=== PATIENT | male | born 1990 | race African-American/Black ===

== ENCOUNTER 2020-08-13 07:50 | Outpatient (CLI) | payer OTHER, SELFPAY ==
--- NOTE | 2020-08-13 13:05 | WPDPFTINT ---
PFT Procedure Performed PFT Procedure Performed Spirometry with Pre/Post Bronchodilator Plethysmography (Lung Vol) Diffusing Cap (DLCO) Flow Vol Loop PFT Interpretation This is a pulmonary function test with pre and post-bronchodilator spirometry, plethysmography and diffusing capacity. The test was performed and results interpreted in accordance with the 2019 and 2005 ATS/ERS Task Force guidelines respectively using the Global Lung Function Initiative-2012 reference equations. Patient demonstrated good effort and cooperation. Reproducibility criteria were met. The quality of the pre bronchodilator spirometry maneuver was Grade A and post bronchodilator spirometry maneuver was Grade A. Findings: Spirometry:The contour the inspiratory and expiratory flow tracing are normal. The pre bronchodilator FVC is 4.57 L, 93% predicted. The pre bronchodilator FEV1 is 3.53 L, 86% predicted. The FEV1: FVC ratio is 77%. The post bronchodilator FVC is 4.67 L, representing a 2% increase. The post bronchodilator FEV1 is 3.88 L, representing a 10% increase. Plethysmography: The total lung capacity is 5.83 L, 91% predicted. The functional residual capacity is 2.42 L, 72% predicted. The residual volume is 1.23 L, 76% predicted. Diffusing capacity: The absolute diffusion capacity is 33.3, 92% predicted. The diffusing capacity corrected for alveolar volume is 5.95, 118% predicted. Impression: The spirometry is normal without evidence of an obstructive abnormality. There is no significant improvement after inhaling a single dose of albuterol. The lung volumes are normal. The diffusing capacity is normal. There are no prior studies for comparison
== END 2020-08-13 07:51 | disposition home or self-care (01) ==
LOC: ANHPFT 07:52
PROVIDERS: PCP Nurse Practitioner Family; Visit Provider Allergy & Immunology
DX: J45.20 Mild intermittent asthma, uncomplicated (principal)
CPT/HCPCS: 94060; 94726; 94729

== ENCOUNTER 2022-01-26 11:40 | Outpatient (CLI) | payer OTHER, SELFPAY ==
--- NOTE | ~2022-01-26 | MR_ITS ---
EXAMINATION: MR shoulder LT w con DATE: 01/26/2022 13:19 INDICATION: Back left shoulder pain TECHNIQUE: Magnetic resonance imaging (MRI) of the left shoulder was performed following intra-artic ular gadolinium contrast injection and without intravenous contrast. Details of the glenohumeral join t injection have been dictated separately. Sequences included axial T2-weighted FS FSE, axial T1-santa ghted FS FSE, coronal oblique T1-weighted FS FSE, coronal oblique T2-weighted FSE, sagittal T2-weight ed FS FSE, sagittal T1-weighted FSE, and ABER (abduction external rotation) T1-weighted FS FSE. COMPARISON: None. FINDINGS: Coracoacromial arch: The acromion undersurface is curved in morphology (type II). The coracoacromial ligament is normal. A cromioclavicular joint is normal. Rotator cuff: Mild supraspinatus and infraspinatus tendinopathy. Tiny articular sided tear/perforation with minimal intrasubstance transition of contrast on the otherwise intact appearing tendon fibers near the footp late of the conjoined portion of the tendons but without a discrete measurable tear defect. The subsc apularis and teres minor tendons are normal. Normal rotator cuff muscle bulk and signal. Biceps tendon, glenoid labrum and glenohumeral cartilage: Extensive labral tear beginning anteriorly at the 12:30 position of the superior glenoid labrum and e xtending posteriorly and inferiorly to the 6:00 position. Multiple small associated para labral cysts at the peripheral remnant glenoid from the 11:00 position to the 9:00 position. There is a small sha llow partial thickness cleft at the chondral labral junction at the 3:00-4:00 position of the anterio r labrum. Nonuniform partial-thickness cartilage loss with posterior inferior predominant. This likel y approaches full-thickness near the 8:00 position where there is underlying cortical irregularity an d mild subarticular cystlike changes. Cartilage at the humeral head appears relatively preserved Bones and other: Bone alignment is normal. No fracture or pathologic marrow replacing process. Tiny fluid collection i n the subdeltoid bursa overlying the anterior inferior greater tuberosity which could represent minim al bursitis. IMPRESSION: 1. Mild glenohumeral osteoarthritis with small region of high-grade chondromalacia along the posterio r inferior glenoid. 2. Extensive labral tear involving the posterior half of the glenoid labrum with with several small p osterior to posterior superior paralabral cysts. Separate small shallow tear at the chondro labral ju nction at the anterior glenoid. 3. Mild supraspinatus and infraspinatus tendinopathy with tiny articular sided perforation at the dis tao conjoined portion of the tendon resulting in minimal intrasubstance contrast imbibition region of doubtful functional significance with no measurable tear defect. Reviewed, dictated and finalized at location A. IMPRESSION: 1. Mild glenohumeral osteoarthritis with small region of high-grade chondromala umm along the posterior inferior glenoid. 2. Extensive labral tear involving the posterior half of the glenoid labrum wit h with several small posterior to posterior superior paralabral cysts. Separate small shallow tear at the chondro labral junction at the anterior glenoid. 3. Mild supraspinatus and infraspinatus tendinopathy with tiny articular sided perforation at the distal conjoined portion of the tendon resulting in minimal intrasubstance contrast imbibition region of doubtful functional significance w ith no measurable tear defect.
--- NOTE | ~2022-01-26 | XR_ITS ---
EXAMINATION: XR fl inj shoulder LT - MR/CT DATE: 01/26/2022 12:25 INDICATION: Chronic left shoulder pain TECHNIQUE: A time-out was performed to verify the patient's name, date of , and procedure to b e performed. The procedure including the risks, benefits, and alternatives was discussed with the pat ient. Risks discussed included bleeding and infection. The patient understood the risks and agreed to proceed. The skin overlying the rotator cuff interval of the left glenohumeral joint was prepped an d draped in usual sterile fashion. Anesthetic was administered with 1% lidocaine subcutaneously. A 22 G needle was advanced under fluoroscopic guidance into the joint. Injection of 1 mL of Omnipaque 240 confirmed intra-articular position of the needle. Subsequently, injectate consisting of 12 mL of 3:1:2 mixture of sterile saline:Omnipaque 350:1% lidocaine mixed 200:1 with 529 mg/mL Multihance syeda olinium contrast was injected with intermittent fluoroscopy confirming intra-articular administration . The needle was removed and the entry site was cleaned and dressed. There were no immediate complica tions. Fluoroscopy exposure time was 0.2 minutes. The total number of images was 115. FINDINGS: Real-time fluoroscopy demonstrates the needle in the left glenohumeral joint. IMPRESSION: 1. Left glenohumeral joint injection of dilute contrast injection for subsequent MRI arthrogram which will be dictated separately. Reviewed, dictated and finalized at location A. IMPRESSION: 1. Left glenohumeral joint injection of dilute contrast injection for subsequen t MRI arthrogram which will be dictated separately.
== END 2022-01-26 11:41 ==
LOC: MICIMG 11:42
PROVIDERS: Visit Provider Orthopaedic Surgery
DX: M19.012 Primary osteoarthritis, left shoulder (principal); S43.432A Superior glenoid labrum lesion of left shoulder, initial encounter; X58.XXXA Exposure to other specified factors, initial encounter
CPT/HCPCS: 23350; 73222; A9577; Q9967

== ENCOUNTER 2022-02-10 12:56 | Outpatient (CLI) | payer OTHER, SELFPAY ==
--- NOTE | ~2022-02-10 | MR_ITS ---
EXAMINATION: MR shoulder RT w con DATE: 02/10/2022 14:09 INDICATION: Chronic right shoulder pain. TECHNIQUE: Magnetic resonance imaging (MRI) of the right shoulder was performed without intravenous c ontrast after intra-articular injection of contrast (MR arthrogram). COMPARISON: None. FINDINGS: Coracoacromial arch: The acromion undersurface is curved in morphology (type II). The acromioclavicular joint is normal. T here is mild subacromial/subdeltoid bursitis. Rotator cuff: There is mild tendinopathy of the conjoined portion of supraspinatus and infraspinatus tendons. Teres minor tendon is normal. Subscapularis tendon is normal. No tear. There is no asymmetric fatty atroph y of the rotator cuff muscle bellies. Biceps tendon and glenoid labrum: Biceps tendon is in bicipital groove. Intra-articular biceps tendon is normal. There is a tear of the superior labrum from 2:00 to 10:00 (SLAP tear). Fluid: The glenohumeral joint is well distended by contrast. There is no contrast in subacromial/subdeltoid bursa. Bones/cartilage: There is cartilage fissuring of the inferior glenoid with mild subchondral edema-like marrow signal i ntensity. Humeral head cartilage is normal. IMPRESSION: 1. SLAP tear. 2. Chondrosis of inferior glenoid. Reviewed, dictated and finalized at location A. [employer]
--- NOTE | ~2022-02-10 | XR_ITS ---
EXAMINATION: XR fl inj shoulder RT - MR/CT DATE: 02/10/2022 13:39 INDICATION: Right shoulder pain TECHNIQUE: A time-out was performed to verify the patient's name, date of , and procedure to b e performed. The procedure including the risks and benefits was discussed with the patient. Risks dis cussed included bleeding and infection. The patient understood the risks and agreed to proceed. The s kin overlying the right glenohumeral joint was prepared and draped in usual sterile fashion. The skin and subcutaneous tissues were infiltrated with 1% lidocaine for local anesthesia. A 22 G needle was advanced under fluoroscopic guidance into the joint. Injectate consisting of 12 mL of 1:200 0.1 mmol/ kg Multihance, 1:4 1% lidocaine, and 1:4 Omnipaque 240 was instilled. The needle was removed and the entry site was cleaned and dressed. There were no immediate complications. Fluoroscopy exposure time was 0.3 minutes. The DAP for this procedure was 1.471 Gycm2. FINDINGS: Real-time fluoroscopy demonstrates the needle and contrast in the right glenohumeral joint. IMPRESSION: 1. Successful right glenohumeral joint injection of contrast for subsequent MR arthrography. Reviewed, dictated and finalized at location B. E GRINDER
== END 2022-02-10 12:57 ==
PROVIDERS: Visit Provider Orthopaedic Surgery
DX: S43.431A Superior glenoid labrum lesion of right shoulder, initial encounter (principal); X58.XXXA Exposure to other specified factors, initial encounter
CPT/HCPCS: 23350; 73222; 77002; A9577; Q9967